=== PATIENT | female | born 1975 | race Caucasian/White ===

== ENCOUNTER 2024-06-15 15:30 | Emergency (ER) | payer MEDICAID ==
[~2024-06-15] VITALS: Ht 167.6 cm; Wt 70.4 kg
[~2024-06-15 15:30] MED LIST: CYCL-1 PO; DENIES HOME MEDS; HYDR-4383 PO
[2024-06-15 15:36] VITALS: BP 156/75; PULSE 94; O2SAT 99
[2024-06-15 17:22] LABS: BASOPHILS # (AUTO) 0.1 X10'3 (0-0.2); BASOPHILS % (AUTO) 1.1 % (0-1); EOSINOPHILS % (AUTO) 0.3 % (0-6); HEMATOCRIT 39.7 % (35.0-45.0); HEMOGLOBIN 13.4 g/dl (12.0-16.0); LYMPHOCYTES # (AUTO) 4.3 X10'3 (1.1-4.8); MEAN CORPUSCULAR HEMOGLOBIN 27.9 PG (27.0-31.0); MEAN CORPUSCULAR HGB CONC 33.8 g/dL (33.0-36.5); MEAN CORPUSCULAR VOLUME 82.7 FL (78-98); MEAN PLATELET VOLUME 7.1 FL (7.4-10.4); MONOCYTES # (AUTO) 0.6 X10'3 (0-0.9); MONOCYTES % (AUTO) 4.3 % (2-12); NEUTROPHILS # (AUTO) 8.1 X10'3 (1.8-7.7); NEUTROPHILS % (AUTO) 61.3 % (42-75); PLATELET COUNT 392 X10'3 (140-440); RED CELL DISTRIBUTION WIDTH 14.5 % (11.5-14.5); WHITE BLOOD COUNT 13.1 X10'3 (4.5-11.0)
[2024-06-15 17:25] LABS: D-DIMER 0.98 MG/L FEU (0-0.50)
[2024-06-15] MEDS ORDERED: ketorolac trometh 15mg/ml vial 15 MG/ML ML IM ONE (18:25)
[2024-06-15 18:56] VITALS: RESP 18
[2024-06-15] MEDS: ketorolac trometh 30MG/ML vial 30 MG/ML VIAL IM ONE (18:56)
[2024-06-15] MEDS ORDERED: PRED50TA PO (19:17)
[2024-06-15] MEDS ORDERED: CEPH-585 PO (19:17)
[2024-06-15 19:25] VITALS: TEMP 98.6
== END 2024-06-15 19:30 | disposition home or self-care (01) ==
LOC: ER 15:30
DX: M25.572 Pain in left ankle and joints of left foot (principal); F41.9 Anxiety disorder, unspecified
CPT/HCPCS: 36415; 73610; 84550; 85025; 85379; 93971; 96372; 99285; J1885

== ENCOUNTER 2024-08-19 20:12 | Emergency (ER) | payer BC, MEDICAID ==
[~2024-08-19] VITALS: Ht 167.6 cm; Wt 70.5 kg
[~2024-08-19 20:12] MED LIST changes: +PRED50TA PO
[2024-08-19 20:29] VITALS: BP 136/80; PULSE 88; RESP 17; O2SAT 98
--- NOTE | 2024-08-19 21:45 | Physician Documentation ---
History of Present Illness ~ Chief Complaint: Ankle pain Stated Complaint: FOOT LAC Time Seen by MD: 21:25 Primary Medical Doctor: GEORGE CONLEY Patient is seen today with complaints of a laceration to the posterior aspect of her left heel. Patient states she was jumping in her trash can trying to smashed the trash bags down and she hurts some breaking glass and felt pain in her left heel and had bleeding and states she has a laceration to her left heel just prior to arrival. She has no other concern or complaint at this time. Tetanus Within 5 Years: No Medication Reconciliation Allergies: Coded Allergies: No Known Allergies (Unverified , 08/19/24) Scheduled Hydrocodone/Acetaminophen (Lerna 5-325 Tablet), 1 TABLET PO Q6H Prednisone (Prednisone), 1 TAB PO DAILY Scheduled PRN Cyclobenzaprine* (Cyclobenzaprine*), 1 TABLET PO Q8H PRN for muscle spasms Miscellaneous Medications [Denies Home Meds], (Reported) Past Medical History Past Medical History: Anxiety Past Surgical History: other Other Past Surgical History: breast augmentation Alcohol Use: Occasionally Drug Use: none Lives In: Home Occupation: employed Review of Systems Constitutional: Denies: chills, fever, weakness Eyes: Denies: pain, blurred vision ENT: Denies: ear pain, nose pain, throat pain, mouth pain Respiratory: Denies: cough, shortness of breath Cardiovascular: Denies: chest pain, palpitations Gastrointestinal: Denies: abdominal pain, nausea, vomiting Genitourinary: Denies: burning, dysuria Female Genitalia: Denies: vaginal discharge, pelvic pain Neurological: Denies: headache, dizziness Musculoskeletal: Denies: pain, swelling Integumentary: Denies: rash, lesions Allergic/Immunologic: Denies: hives, itching Hematologic/Lymphatic: Denies: no symptoms reported Psychiatric: Denies: depression, anxiety Physical Exam Vital Signs: Temperature: 98.4, Source: Oral, Heart Rate: 88, Respiratory Rate: 17, BP: 136/80, Pulse Oximetry: 98, Weight: 70.450 Physical Exam General: Awake and Alert, no acute distress. HEENT: Conjunctiva pink, Sclera clear, Mucus Membranes moist. Neck: Supple without masses and tenderness. Resp: Unlabored. Lungs clear to auscultation bilaterally. Heart: Regular Rate and rhythm, normal S1 and S2 without murmur, rub or gallop. Extremities: No cyanosis,clubbing or edema. Skin: Patient on exam does have a laceration to the posterior heel on the left side in the shape of the of the measuring approximately 2-1/2 cm on each side which would be 5 cm total in the parents or shape of the skin flap. I do not appreciate any foreign bodies. Procedures Laceration/Wound Repair Laceration : Procedure Note Procedure note: 10 cc of 1% lidocaine with epinephrine was used to achieve local anesthesia of the posterior left heel. Wound was irrigated copiously with normal saline and iodine. Patient tolerated well. Running suture and simple suture was used to achieve closure of the 5 cm laceration that was in his v- shaped flap pattern. Patient tolerated well. Nonstick dressing and bulky bandage applied to laceration repair site. Progress Results/Orders Results/Orders Completed Orders - ANAIS GRAHAM PAC Lidocaine 1% W/Epi 1:100,000 (Xylocaine (08/19/24 21:43) Vital Signs 08/19/24 20:29 Temp 98.4 Pulse 88 Resp 17 B/P (MAP) 136/80 Pulse Ox 98 Medical Decision Making Findings Patient is seen today with complaints of a laceration to the posterior aspect of her left heel. Patient states she was jumping in her trash can trying to smashed the trash bags down and she hurts some breaking glass and felt pain in her left heel and had bleeding and states she has a laceration to her left heel just prior to arrival. She has no other concern or complaint at this time. Laceration to left heel was repaired via running suture by myself today and patient tolerated well. Patient will return for suture removal in 7-10 days. Patient will perform daily dressing changes and keep wound clean and dry. Clean runny and soapy water is okay after the 3rd day. Do not place repair site or laceration in any stagnant water such as a pool or [place]. Return to ED with any worsening, concerning or changing symptoms. Patient was also given tetanus vaccination. Departure Disposition: 01 HOME / SELF CARE / HOMELESS Impression: Primary Impression: Foot laceration Qualified Codes: S91.312A - Laceration without foreign body, left foot, initial encounter Condition: Improved Discharge Instructions: Laceration Care, Adult, [id number] Additional Instructions: Laceration to left heel was repaired via running suture by myself today and patient tolerated well. Patient will return for suture removal in 7-10 days. Patient will perform daily dressing changes and keep wound clean and dry. Clean runny and soapy water is okay after the 3rd day. Do not place repair site or laceration in any stagnant water such as a pool or [place]. Return to ED with any worsening, concerning or changing symptoms. Patient was also given tetanus vaccination. Referrals: NO PRIMARY CARE PROVIDER (PCP) Signature Scribe Signature: No scribe Attestation: No scribe ANAIS GRAHAM PAC Aug 19, 2024 21:45
[2024-08-19] MEDS: LIDOcaine 1% W/epiNEPHrine 1:100,000 20ml vial SQ STA (22:15)
[2024-08-19 23:24] VITALS: TEMP 98.4
[2024-08-19] MEDS: TETanus/Pertussis (Acell)/Diphther VAC/PF (Tdap-Adult) 0.5ml syringe IMVAC ONE (23:29)
== END 2024-08-19 23:31 | disposition home or self-care (01) ==
LOC: ER 20:13
DX: S91.312A Laceration without foreign body, left foot, initial encounter (principal); Z79.899 Other long term (current) drug therapy; Z72.89 Other problems related to lifestyle; X58.XXXA Exposure to other specified factors, initial encounter; Y93.89 Activity, other specified; Y92.89 Other specified places as the place of occurrence of the external cause; Y99.8 Other external cause status
CPT/HCPCS: 12002; 90471; 90715; 99283; A6449

== ENCOUNTER 2024-10-01 20:47 | Emergency (ER) | payer BC, OTHER ==
[~2024-10-01] VITALS: Ht 167.6 cm; Wt 70.5 kg
[2024-10-01 21:12] VITALS: BP 148/86; PULSE 90; O2SAT 100
[2024-10-01 22:27] VITALS: RESP 18
[2024-10-01] MEDS: HYDROcodone/acetaminophen 10/325mg tab PO ONE (22:27)
--- NOTE | 2024-10-01 22:32 | Physician Documentation ---
History of Present Illness ~ Chief Complaint: Leg Pain Stated Complaint: BACK PAIN Time Seen by MD: 22:02 OK to notify your PCP?: Yes Primary Medical Doctor: GEORGE WELCH Source: patient Mode of Arrival: POV Exam Limitations: no limitations HPI 49-year-old female presents with severe pain to right tibia. She was seen at [place] 09/19/24 and has a tibia fracture with a splint placed. She fell again today and heard a snapping sound. She is unsure if this is the fiberglass splint or if this was her bone. Her previous fracture was not displaced. She has an upcoming surgery date scheduled. She attempted to rewrap her splint to loosen it without pain relief. She has been taking Tylenol and ibuprofen for pain relief. Tetanus witin 5 years: No Medication Reconciliation Allergies: Coded Allergies: No Known Allergies (Unverified , 10/01/24) Scheduled Hydrocodone/Acetaminophen ([place] 5-325 Tablet), 1 TABLET PO Q6H Prednisone (Prednisone), 1 TAB PO DAILY Scheduled PRN Cyclobenzaprine* (Cyclobenzaprine*), 1 TABLET PO Q8H PRN for muscle spasms Miscellaneous Medications [Denies Home Meds], (Reported) Past Medical History Past Medical History: Anxiety Past Surgical History: other Other Past Surgical History: breast augmentation Alcohol Use: Occasionally Drug Use: none Lives In: Home Occupation: employed Review of Systems All Other Systems at this time: Reviewed and Negative Physical Exam Vital Signs: RN Vital Signs have been reviewed: Yes, Temperature: 98.0, Source: Temporal, Heart Rate: 90, Respiratory Rate: 18, BP: 148/86, Pulse Oximetry: 100, Weight: 70.450 Pulse Oximetry Reflects: adequate oxygenation Physical Exam General: Alert, no distress. HEENT: No injection, moist mucous membranes. Neck: Full range of motion. Respiratory: No respiratory distress, equal chest rise and fall. Chest: No accessory muscle use. Cardiovascular: Regular rate and rhythm. Gastrointestinal: Nondistended. Extremities: Pain to palpation of right palumbo. Small healing laceration to anterior aspect of palumbo. Limited range motion in that leg and very painful with any movement. Neurologic: Oriented x4. Psychiatric: Normal mood and affect. Skin: Normal color, warm and dry. Progress Results/Orders Reviewed/noted all lab results: Yes Results/Orders Orders - [facility] Tib/Fib (10/01/24 22:12) Ortho Orders (10/01/24 ) Completed Orders - [facility] Tib/Fib (10/01/24 22:12) Hydrocodone/Apap 10/325 ([place] 10/325mg (10/01/24 22:15) Hydroxyzine Tablet (Atarax Tablet) (10/01/24 23:00) Medications Received in ER Medications (Trade) Dose Ordered Sig/Cady Route PRN Reason Start Time Stop Time Status Last Admin Dose Admin ([place] 10/325mg tab) 1 tab ONCE ONCE PO 10/01/24 22:15 10/01/24 22:16 DC 10/01/24 22:27 1 TAB (Atarax tablet) 50 mg ONCE ONCE PO 10/01/24 23:00 10/01/24 23:01 DC 10/01/24 23:05 50 MG Vital Signs 10/01/24 10/01/24 10/01/24 21:12 22:27 23:47 Temp 98.0 98.0 Pulse 90 Resp 18 18 B/P (MAP) 148/86 Pulse Ox 100 EKG/XRAY/CT/US/VASC/MRI Bone/Soft Tissue X-Ray (Ext.) : Additional Comment right tib/fib X-ray as interpreted by me; no soft tissue swelling, no dislocation, or foreign body. Displaced oblique fracture of right tibia. Medical Decision Making Additional info obtained from: old records, family Findings 49-year-old female presents with increased right leg pain after falling today at work. She currently has a splint on for a tibia fracture from 09/19/24 and she tripped and fell today and heard a snapping sound. She is unsure if she damaged the short-leg with stirrup splint or her leg further. No signs of symptoms of infection or compartment syndrome on exam. Her prior records show that she had a displaced oblique fracture, which is viewed on today's X ray and she has a orthopedic surgery upcoming. She has been taking Tylenol and ibuprofen for pain relief. She is requesting to have the splint removed. We replaced the splint and her pain and comfort improved. We gave [place] and Atarax while here in the department to help with the pain and anxiety when changing out splint. She has crutches at home already so she will continue to use those crutches. Discussed that she should continue with her follow up with her primary care as well as the orthopedic surgeon which she has already scheduled her surgery. She should notify the orthopedic surgeon that she did come in here so he can view the images. I was unable to compare the images but was able to read the report from her prior visit as it was at a different hospital. She should return back here for any new or worsening symptoms. General Diff Dx:Considerations: Include: Abrasion, Hematoma, Malunion, Neurovascular injury Foot Diff Dx:Considerations: Include: Cellulitis Additional Comment Compartment syndrome Departure Disposition: 01 HOME / SELF CARE / HOMELESS Impression: Primary Impression: Fracture of tibia Condition: Stable Discharge Instructions: Tibial Fracture, Adult, [id number] Additional Instructions: Continue with your follow up with Orthopedics and her primary care. Continue taking Tylenol and ibuprofen for pain relief today we replaced your splint for comfort. Do not walk on the splint please continue to use crutches. Return back here for any new or worsening symptoms. Referrals: NO PRIMARY CARE PROVIDER (PCP) Education Educated: Patient Educated regarding: diagnosis, treatment, prognosis, need for follow up Additional Comment Medical Screen Exam This patient recieved a medical screening examination. After reviewing the individual's medical complaints with presenting symptoms and performing an appropriate physical examination, it was determined that no immediate life- threatening emergency medical condition is present. This individual is also not a women having contractions. Signature Scribe Signature: . Attestation: Scribed for Santa Shaw by Santa Lovell NP . 10/02/24 00:05 Parts of this note were created using [employer] voice recognition software program. While efforts were made to correct any mistakes made by this voice recognition software program, nonsensical phrases may remain in this note. In addition, there may be errors and syntax, grammar, content and spelling. [facility] [facility] Oct 01, 2024 22:31
[2024-10-01 23:47] VITALS: TEMP 98
--- NOTE | 2024-10-02 00:02 | RADIOLOGY REPORT ---
EXAM: DI TIB/FIB 2 VWS REASON FOR EXAM: LEG PAIN TECHNIQUE: AP and cross-table lateral views of the right tibia and fibula are submitted for review. COMPARISON: None FINDINGS: Fine bony and soft tissue details are obscured by splint material. There is acute, oblique fracture through the distal tibial diaphysis with anterior displacement of the distal fracture fragme nt by 1 cortical thickness. There is moderate soft tissue swelling about the distal lower leg. IMPRESSION: Minimally displaced acute oblique fracture through the distal tibial diaphysis.
== END 2024-10-01 23:49 | disposition home or self-care (01) ==
LOC: ER 20:48
DX: S82.301A Unspecified fracture of lower end of right tibia, initial encounter for closed fracture (principal); F41.9 Anxiety disorder, unspecified; W19.XXXA Unspecified fall, initial encounter; Y93.89 Activity, other specified; Y92.89 Other specified places as the place of occurrence of the external cause; Y99.8 Other external cause status
CPT/HCPCS: 29515; 73590; 99283; Q0177; A6446; A6449